=== PATIENT | male | born 1975 | race Caucasian/White ===

== ENCOUNTER → 2017-02-24 | Outpatient (CLI) | payer OTHER ==
[~2017-02-24] MED LIST: ALEVE220 MG PO; AMOXICILLIN875 MG PO; ANAPROX DS550 M1 PO; BENGAY TP; CIPRO500 MG PO; FLAGYL500 MG PO; HYDROCODON-ACE1 EAC7 PO; NOHOMEMEDS; NORCO 5/3251 TABLET PO; PEN-VEE K,VEET500 MG PO; TYLENOL WITH C1 EACH PO; ULTRAM50 MG PO
== END | disposition home or self-care (01) ==
LOC: RAD 09:41
DX: D48.0 Neoplasm of uncertain behavior of bone and articular cartilage (principal); Z02.71 Encounter for disability determination
CPT/HCPCS: 73560

== ENCOUNTER 2017-06-28 16:11 | Observation (INO) | payer OTHER ==
[~2017-06-28] VITALS: Ht 185.4 cm; Wt 75.0 kg
[2017-06-28 16:36] LABS: HEMATOCRIT 41.4 % (38.0-50.0); MCH 29.7 PG (29.0-34.0); MCV 84.8 FL (86-99); MEAN PLAT.VOLUME 10.5 uM^3 (9.0-12.4); PLATELET COUNT 221 K/uL (156-360); RBC DIS.WIDTH-CV 12.4 % (11.8-14.6); RBC DIS.WIDTH-SD 37.9 % (39-53); RED BLOOD COUNT 4.88 M/uL (4.00-5.50); WHITE BLOOD COUNT 8.9 K/uL (4.1-10.2)
[2017-06-28 16:48] LABS: CHLORIDE 105 mEq/L (99-109); POTASSIUM 3.7 mEq/L (3.7-5.4); SODIUM 137 mEq/L (136-147)
[2017-06-28 16:49] LABS: GLUCOSE 96 mg/dL (70-99)
[2017-06-28 16:51] LABS: ANION GAP 7 MEQ/L (2-14)
[2017-06-28 16:53] LABS: GFR ESTIMATE (CALCULATED) > 59 mL/min/
[2017-06-28 16:54] LABS: UREA NITROGEN (BUN) 15 mg/dL (9-23)
[2017-06-28 17:01] LABS: TROP-I INTERPRETATION NEGATIVE; TROPONIN-I < 0.01 ng/mL (0.0-0.30)
[2017-06-28 17:08] LABS: TOTAL BILIRUBIN 0.2 mg/dL (0.0-1.0)
[2017-06-28 17:09] LABS: ALKALINE PHOSPHATASE 65 IU/L (3-129)
[2017-06-28 17:12] LABS: CREATINE KINASE 136 IU/L (1-294); TOTAL CK 136 IU/L (1-294)
[2017-06-28 17:18] LABS: CK-MB 1.3 ng/mL (0.0-4.9)
[2017-06-28] MEDS ORDERED: ADVIL,NUPRIN,M200 MG PO (18:28)
[2017-06-28 20:30] VITALS: BP 114/67
[2017-06-28 23:29] LABS: TROP-I INTERPRETATION NEGATIVE; TROPONIN-I < 0.01 ng/mL (0.0-0.30)
[2017-06-29 00:55] VITALS: BP 105/53
[2017-06-29 04:00] VITALS: BP 110/58
[2017-06-29 06:17] LABS: HDL CHOLESTEROL 30 MG/DL (Desirable>=40); LDL CHOLESTEROL 120 mg/dL (Desirable<100); NON-HDL CHOLESTEROL 151 mg/dL (Desirable<160); TOTAL CHOLESTEROL 181 mg/dL (Desirable<200); TRIGLYCERIDES 156 MG/DL (Normal: <150)
[2017-06-29 06:33] LABS: TROP-I INTERPRETATION NEGATIVE; TROPONIN-I < 0.01 ng/mL (0.0-0.30)
[2017-06-29 07:59] VITALS: BP 99/57
[2017-06-29 12:15] VITALS: BP 118/82
[2017-06-29] MEDS ORDERED: NITROGLYCERIN0.4 MG SL (13:41)
[2017-06-29] MEDS ORDERED: ASPIRIN81 M2 PO (13:41)
[2017-06-29] MEDS ORDERED: ATORVASTATIN CA80 MG PO (13:41)
[2017-06-29] MEDS ORDERED: NICOTINE PATCH1 EAC2 TD (13:41)
== END 2017-06-29 14:52 | disposition home or self-care (01) ==
LOC: EME 16:11 → EDOF 18:48 → 5WEST 18:48 → EDOF 18:48 → ENRESERV 18:48 → 5WEST 20:26 → ENPENDDIS 06-29 → 5WEST 06-29 14:52
PROVIDERS: Physician Assistant Medical
DX: R07.2 Precordial pain (principal); F17.210 Nicotine dependence, cigarettes, uncomplicated; Z82.49 Family history of ischemic heart disease and other diseases of the circulatory system; R06.02 Shortness of breath; R11.2 Nausea with vomiting, unspecified
CPT/HCPCS: 71020; 71275; 74174; 80048; 80053; 80061; 82550; 82550 91; 82553; 84484; 85027; 93005; 93306; 99281; 99285; G0378; J1200; J2270; J2405; J2765; J7030

== ENCOUNTER 2017-08-31 00:29 | Emergency (ER) | payer OTHER ==
[~2017-08-31] VITALS: Ht 185.4 cm; Wt 78.7 kg
[~2017-08-31 00:29] MED LIST changes: +ADVIL,NUPRIN,M200 MG PO; +ASPIRIN81 M2 PO; +ATORVASTATIN CA80 MG PO; +NICOTINE PATCH1 EAC2 TD; +NITROGLYCERIN0.4 MG SL
[2017-08-31] MEDS ORDERED: PEN-VEE K,VEET500 MG PO (00:51)
[2017-08-31] MEDS ORDERED: LORTAB 5-325 M1 EACH PO (00:51)
[2017-08-31] MEDS ORDERED: MOTRIN600 MG PO (00:54)
[2017-08-31 01:02] VITALS: BP 172/84
== END 2017-08-31 01:03 | disposition home or self-care (01) ==
LOC: EME 00:29
DX: K04.7 Periapical abscess without sinus (principal); Z98.890 Other specified postprocedural states; F17.200 Nicotine dependence, unspecified, uncomplicated; Z71.6 Tobacco abuse counseling
CPT/HCPCS: 99281; 99283